=== PATIENT | female | born 1950 | race Caucasian/White ===

== ENCOUNTER → 2018-01-21 08:14 | Outpatient (CLI) | payer MEDICARE, SELFPAY ==
[2018-01-21 09:12] LABS: Add Manual Diff / Slide Review NO; Basophils Percent Auto 0.9 % (0-2); Eosinophils Percent Auto 2.2 % (2-4); Hematocrit 46.4 % (36-46); Hemoglobin 15.7 g/dL (12.0-16.0); Lymphocytes Percent Auto 34.8 % (25-40); Mean Corpuscular HGB Conc 33.9 % (30-36); Mean Corpuscular Hemoglobin 32.4 PG (26-34); Mean Corpuscular Volume 95.4 fL (80-100); Monocytes Percent Auto 6.1 % (3-14); Neutrophils Absolute Auto 4300 /uL (3000-5900); Platelet Count 227 X10^3/uL (150-400); Red Blood Cell Count 4.86 X10^6/uL (4.0-5.2); Red Cell Distribution Width 13.7 % (11.6-14.8); White Blood Cell Count 7.7 X10^3/uL (4.5-11.0)
[2018-01-21 09:40] LABS: Alanine Aminotransferase 26 IU/L (9-52); Albumin 4.3 g/dL (3.5-5.0); Albumin Globulin Ratio 1.5 (1.0-2.8); Alkaline Phosphatase 75 U/L (38-126); Aspartate Aminotransferase 22 IU/L (14-36); BUN Creatinine Ratio 18.8 (6-22); Bilirubin Total 0.6 mg/dL (0.2-1.3); Calcium 9.3 mg/dL (8.4-10.2); Cholesterol 174 mg/dL (140-199); Estimated Glomerular Filt Rate > 60.0 mL/min (>60); Globulin 2.9 g/dL (1.7-4.1); Glucose 99 mg/dL (80-110); HDL Cholesterol 48 mg/dL (40-60); HEMOLYSIS < 15 (0-50); LDL Cholesterol Calculated 94 mg/dL (<100); Potassium 4.4 mmol/L (3.4-5.1); Sodium 141 mmol/L (137-145); Total Protein 7.2 g/dL (6.3-8.2); Triglycerides 160 mg/dL (35-150)
[2018-01-21 10:12] LABS: TSH w/ Reflex to FT4 3.41 uIU/mL (0.47-4.68)
== END ==
PROVIDERS: PCP Family Medicine; Visit Provider Family Medicine
DX: E78.2 Mixed hyperlipidemia (principal); E03.9 Hypothyroidism, unspecified
CPT/HCPCS: 36415; 80053; 80061; 84443; 85025

== ENCOUNTER → 2018-03-11 10:11 | Outpatient (CLI) | payer MEDICARE, SELFPAY | PROVIDERS: PCP Family Medicine; Visit Provider Family Medicine | DX: M85.852 Other specified disorders of bone density and structure, left thigh (principal); Z78.0 Asymptomatic menopausal state; Z90.722 Acquired absence of ovaries, bilateral; Z72.0 Tobacco use; E03.9 Hypothyroidism, unspecified | CPT/HCPCS: 77080 ==

== ENCOUNTER → 2018-12-27 08:38 | Outpatient (CLI) | payer MEDICARE, SELFPAY ==
[2018-12-27 10:10] LABS: Add Manual Diff / Slide Review NO; Basophils Absolute Auto 100 /uL (0-100); Eosinophils Absolute Auto 100 /uL (0-450); Eosinophils Percent Auto 2.1 % (2-4); Hemoglobin 15.8 g/dL (12.0-16.0); Lymphocytes Absolute Auto 2400 /uL (1100-4500); Lymphocytes Percent Auto 34.5 % (25-40); Mean Corpuscular HGB Conc 33.6 % (30-36); Mean Corpuscular Hemoglobin 32.5 PG (26-34); Mean Corpuscular Volume 96.8 fL (80-100); Monocytes Absolute Auto 500 /uL (0-900); Monocytes Percent Auto 7.4 % (3-14); Neutrophils Absolute Auto 3800 /uL (1500-7000); Platelet Count 255 X10^3/uL (150-400); Red Blood Cell Count 4.86 X10^6/uL (4.0-5.2); Red Cell Distribution Width 14.7 % (11.6-14.8); White Blood Cell Count 6.9 X10^3/uL (4.5-11.0)
[2018-12-27 10:25] LABS: Alanine Aminotransferase 17 IU/L (9-52); Albumin 4.7 g/dL (3.5-5.0); Albumin Globulin Ratio 1.6 (1.0-2.8); Alkaline Phosphatase 73 U/L (38-126); Aspartate Aminotransferase 22 IU/L (14-36); BUN Creatinine Ratio 16.3 (6-22); Bilirubin Total 0.6 mg/dL (0.2-1.3); Blood Urea Nitrogen 13 mg/dL (7-17); Calcium 9.2 mg/dL (8.4-10.2); Carbon Dioxide 30 mmol/L (22-32); Chloride 100 mmol/L (98-107); Estimated Glomerular Filt Rate > 60.0 mL/min (>60); Globulin 2.9 g/dL (1.7-4.1); Glucose 94 mg/dL (80-110); HEMOLYSIS 17 (0-50); Potassium 4.3 mmol/L (3.4-5.1); Sodium 138 mmol/L (137-145); Total Protein 7.6 g/dL (6.3-8.2)
[2018-12-27 11:48] LABS: Thyroid Stimulating Hormone 2.38 uIU/mL (0.47-4.68)
== END ==
PROVIDERS: PCP Family Medicine; Visit Provider Family Medicine
DX: E03.9 Hypothyroidism, unspecified (principal); E78.2 Mixed hyperlipidemia
CPT/HCPCS: 36415; 80053; 84443; 85025

== ENCOUNTER → 2019-01-31 09:28 | Outpatient (CLI) | payer MEDICARE, SELFPAY ==
--- NOTE | 2019-01-31 09:31 | DI.RAD.S_ITS ---
PROCEDURE: XR CHEST 2V INDICATIONS: cough TECHNIQUE: 2 views of the chest were acquired. COMPARISON: [facility], CHEST 2 VIEW, 01/10/2011, 12:55. [facility], CHEST 2 VIEW, 01/21/2011, 8:10. FINDINGS: Surgical changes and devices: None. Lungs and pleura: Lungs are clear. No pleural effusions or pneumothorax. Mediastinum: Mediastinal contours are normal. Heart size is normal. Bones and chest wall: No suspicious bony abnormalities. Soft tissues appear unremarkable. IMPRESSION: No acute cardiopulmonary disease. Dictated by: Doe Saeed M.D. on 01/31/2019 at 9:43 Approved by: Doe Saeed M.D. on 01/31/2019 at 9:50
== END ==
PROVIDERS: PCP Family Medicine; Visit Provider Physician Assistant
DX: R05 Cough (principal)
CPT/HCPCS: 71046

== ENCOUNTER → 2019-02-10 11:46 | Outpatient (CLI) | payer MEDICARE, SELFPAY ==
--- NOTE | 2019-02-10 11:48 | DI.MG.S_ITS ---
BILATERAL DIGITAL SCREENING MAMMOGRAM 3D/2D WITH CAD: 02/10/2019 CLINICAL: Routine screening. Comparison is made to exams dated: 02/13/2017 mammogram, 02/12/2015 mammogram - [facility], and 04/14/2012 mammogram - [facility]. The tissue of both breasts is heterogeneously dense. This may lower the sensitivity of mammography. Current study was also evaluated with a Computer Aided Detection (CAD) system. No significant masses, calcifications, or other findings are seen in either breast. There has been no significant interval change. IMPRESSION: NEGATIVE There is no mammographic evidence of malignancy. A 1 year screening mammogram is recommended. This exam was interpreted at Station ID: [id number]. NOTE: For mammograms, a report in lay terms will be sent to the patient. Approximately 15% of breast malignancies will not be visualized mammographically. In the management of a palpable breast mass, a negative mammogram must not discourage biopsy of a clinically suspicious lesion. Electronically Signed By: Dominic christianson/kathe:02/11/2019 06:36:00 letter sent: Normal Exam ACR BI-RADS Category 1: Negative 3341F
== END ==
PROVIDERS: PCP Family Medicine; Visit Provider Family Medicine
DX: Z12.31 Encounter for screening mammogram for malignant neoplasm of breast (principal)
CPT/HCPCS: 77063; 77067

== ENCOUNTER → 2020-09-14 10:20 | Outpatient (CLI) | payer MEDICARE, SELFPAY ==
[2020-09-14 10:44] LABS: Add Manual Diff / Slide Review NO; Basophils Absolute Auto 100 /uL (0-100); Basophils Percent Auto 0.8 % (0-2); Eosinophils Absolute Auto 200 /uL (0-450); Eosinophils Percent Auto 2.8 % (2-4); Hematocrit 45.1 % (36-46); Hemoglobin 15.3 g/dL (12.0-16.0); Lymphocytes Absolute Auto 2200 /uL (1100-4500); Lymphocytes Percent Auto 33.6 % (25-40); Mean Corpuscular HGB Conc 33.9 % (30-36); Mean Corpuscular Hemoglobin 32.8 PG (26-34); Mean Corpuscular Volume 96.7 fL (80-100); Monocytes Absolute Auto 400 /uL (0-900); Monocytes Percent Auto 6.7 % (3-14); Neutrophils Absolute Auto 3700 /uL (1500-7000); Neutrophils Percent Auto 56.1 % (50-75); Platelet Count 232 X10^3/uL (150-400); Red Blood Cell Count 4.67 X10^6/uL (4.0-5.2); Red Cell Distribution Width 13.7 % (11.6-14.8); White Blood Cell Count 6.6 X10^3/uL (4.5-11.0)
[2020-09-14 11:07] LABS: Alanine Aminotransferase 15 IU/L (<35); Albumin 4.3 g/dL (3.5-5.0); Albumin Globulin Ratio 1.5 (1.0-2.8); Alkaline Phosphatase 84 U/L (38-126); Aspartate Aminotransferase 24 IU/L (14-36); BUN Creatinine Ratio 18.4 (6-22); Bilirubin Total 0.5 mg/dL (0.2-1.3); Blood Urea Nitrogen 14 mg/dL (7-17); Calcium 9.2 mg/dL (8.4-10.2); Carbon Dioxide 32 mmol/L (22-32); Chloride 104 mmol/L (98-107); Cholesterol 163 mg/dL (140-199); Estimated Glomerular Filt Rate > 60.0 mL/min (>60); Globulin 2.9 g/dL (1.7-4.1); Glucose 98 mg/dL (80-110); HDL Cholesterol 50 mg/dL (40-60); HEMOLYSIS < 15 (0-50); LDL Cholesterol Calculated 76 mg/dL (<100); Potassium 4.5 mmol/L (3.4-5.1); Sodium 138 mmol/L (137-145); Total Protein 7.2 g/dL (6.3-8.2); Triglycerides 183 mg/dL (35-150)
[2020-09-14 11:34] LABS: Thyroid Stimulating Hormone 1.71 uIU/mL (0.47-4.68)
== END ==
PROVIDERS: PCP Family Medicine; Referring Provider Family Medicine; Visit Provider Family Medicine
DX: E03.9 Hypothyroidism, unspecified (principal); E78.2 Mixed hyperlipidemia; Z72.0 Tobacco use
CPT/HCPCS: 36415; 80053; 80061; 84443; 85025

== ENCOUNTER → 2020-11-09 11:03 | Outpatient (CLI) | payer MEDICARE, SELFPAY ==
--- NOTE | 2020-11-09 | DI.MG.S_ITS ---
BILATERAL DIGITAL SCREENING MAMMOGRAM 3D/2D WITH CAD: 11/09/2020 CLINICAL: Routine screening. Family history of breast cancer. Comparison is made to exams dated: 02/10/2019 mammogram, 02/13/2017 mammogram, and 02/12/2015 mammogram - [facility]. The tissue of both breasts is heterogeneously dense. This may lower the sensitivity of mammography. Current study was also evaluated with a Computer Aided Detection (CAD) system. No significant masses, calcifications, or other findings are seen in either breast. There has been no significant interval change. IMPRESSION: NEGATIVE There is no mammographic evidence of malignancy. A 1 year screening mammogram is recommended. This exam was interpreted at Station ID: [id number]. NOTE: For mammograms, a report in lay terms will be sent to the patient. Approximately 15% of breast malignancies will not be visualized mammographically. In the management of a palpable breast mass, a negative mammogram must not discourage biopsy of a clinically suspicious lesion. Electronically Signed By: Lefty nicolas/kathe:11/09/2020 12:21:43 letter sent: Normal Exam ACR BI-RADS Category 1: Negative 3341F
== END ==
PROVIDERS: PCP Family Medicine; Referring Provider Family Medicine; Visit Provider Family Medicine
DX: Z12.31 Encounter for screening mammogram for malignant neoplasm of breast (principal); Z80.3 Family history of malignant neoplasm of breast
CPT/HCPCS: 77063; 77067

== ENCOUNTER → 2020-11-30 10:23 | Outpatient (CLI) | payer MEDICARE, SELFPAY ==
--- NOTE | 2020-11-30 10:26 | DI.US.S_ITS ---
PROCEDURE: US PELVIC COMPLETE INDICATIONS: left lower quadrant pain, h/o ovarian cyst TECHNIQUE: Real-time scanning was performed of the pelvic organs, with image documentation. Additional endovaginal scanning was necessary due to incomplete visualization of the adnexal and endometrial structures by transabdominal scanning. COMPARISON: [facility], , PELVIC COMPLETE, 02/12/2015, 8:37. FINDINGS: Uterus: Surgically absent. Ovaries: Right ovary surgically absent. A simple left ovarian cyst is again noted measuring 3.3 x 2.3 x 2.5 cm. Other: No pathologic free abdominal or pelvic fluid. IMPRESSION: Stable appearance of 3.3 cm simple left ovarian cyst. Annual sonographic surveillance is recommended. Dictated by: Alverto Mendez [facility] Interpreted: Suzan Almaraz MD on 11/30/2020 at 11:17 Approved by: Suzan Almaraz MD, PhD on 11/30/2020 at 14:56
== END ==
PROVIDERS: PCP Family Medicine; Referring Provider Family Medicine; Visit Provider Family Medicine
DX: N83.292 Other ovarian cyst, left side (principal)
CPT/HCPCS: 76830; 76856

== ENCOUNTER → 2021-03-13 08:10 | Outpatient (CLI) | payer MEDICARE, SELFPAY ==
--- NOTE | 2021-03-13 08:12 | DI.US.S_ITS ---
PROCEDURE: US PELVIC COMPLETE INDICATIONS: F/U LEFT OVARIAN CYST TECHNIQUE: Real-time scanning was performed of the pelvic organs, with image documentation. Additional endovaginal scanning was necessary due to incomplete visualization of the adnexal and endometrial structures by transabdominal scanning. COMPARISON: [facility], , US PELVIC COMPLETE, 11/30/2020, 11:02. FINDINGS: Uterus: Uterus has been removed. Ovaries: Right ovary has been removed. Left ovary measures 3.4 x 2.4 x 2.9 cm. Focus of decreased echogenicity is present measuring 3.1 x 2.2 x 2 x 3 cm, compared to 3.3 x 2 x 3 x 2.5 cm. Other: No pathologic free abdominal or pelvic fluid. IMPRESSION: Relatively stable appearance of prominent left ovarian cyst as above. Dictated by: Remedios Samuel M.D. on 03/13/2021 at 10:43 Approved by: Remedios Samuel M.D. on 03/13/2021 at 10:44
== END ==
PROVIDERS: PCP Family Medicine; Referring Provider Obstetrics & Gynecology; Visit Provider Obstetrics & Gynecology
DX: N83.202 Unspecified ovarian cyst, left side (principal); Z90.710 Acquired absence of both cervix and uterus
CPT/HCPCS: 76830; 76856

== ENCOUNTER → 2021-05-23 15:49 | Outpatient (ROUT) | payer MEDICARE, SELFPAY ==
[2021-05-23 16:23] LABS: COVID19 -Nasal RAPID Negative (Negative)
== END ==
PROVIDERS: PCP Family Medicine; Visit Provider Obstetrics & Gynecology
DX: Z01.812 Encounter for preprocedural laboratory examination (principal); Z20.822 Contact with and (suspected) exposure to COVID-19
CPT/HCPCS: 87635

== ENCOUNTER 2021-05-24 07:57 | Day surgery (SDC) | payer MEDICARE, SELFPAY ==
[2021-05-22 08:09] VITALS: BMI 23.7
[2021-05-24] VITALS (8 sets, daily range): BP systolic 112–138; BP diastolic 61–81; PULSE 65–80; RESP 12–18; TEMP 36.4–37; O2SAT 92–99; BMI 23.6
--- NOTE | 2021-05-24 | PATH_ITS ---
[facility] Accession Number: [id number] . 01 Material submitted: . ovary - BILATERAL OVARIES . 02 Diagnosis: Bilateral Ovaries, Bilateral Oophorectomy: Smaller ovary (weight 2 grams) with multiple benign cortical follicle and serous cysts (2-3 mm) and adherent fallopian tube; negative for atypia or malignancy. Larger ovary (weight 11 grams) with a benign serous cystadenoma (3.0 cm) and multiple, smaller benign serous cysts (1-3 mm) with patchy capsular adhesions, non-specific. [facility] 05/28/2021 1429 Local . 02 Electronically signed: . Donna Rios MD, Pathologist NPI- [id number] . 01 Gross description: . Received in formalin, labeled bilateral ovaries, and consists of two ovaries weighing 2 gm, 2.0 x 1.5 x 1.0 cm and 11g, 4.0 x 3.0 x 2.6 cm. The external surfaces are maurice and focally ragged. The smaller ovary has a portion of attached fimbriae. Sectioning reveals multiple maurice-white, smooth-walled, serous-filled cysts ranging from 0.2 cm to 3.0 cm. No papillary excrescences are identified. area representative sections are submitted. . A1-A2: Smaller ovary with attached fimbriae, bisected and entirely submitted. A3-A5: Geriatric Social Worker larger ovary. ([id number]) /FRR 05/25/2021 1618 Local . 02 Pathologist provided ICD-10: N83.209, R10.2, D27.9 . 02 CPT . 336639 Performed at: 01 [facility] [address] [place] [address] [address], [place], [place] [id number] MD Lefty Lind MD Phone: [phone] Performed at: 02 [facility] [address] [place] [id number] MD Justina Luz MD Phone: [phone]
--- NOTE | 2021-05-24 08:46 | SUR.PREOP ---
Lab in to draw blood.
[2021-05-24 08:52] LABS: Add Manual Diff / Slide Review NO; Basophils Absolute Auto 100 /uL (0-100); Basophils Percent Auto 0.8 % (0-2); Eosinophils Absolute Auto 100 /uL (0-450); Eosinophils Percent Auto 1.7 % (2-4); Hematocrit 44.1 % (36-46); Hemoglobin 14.7 g/dL (12.0-16.0); Lymphocytes Absolute Auto 1900 /uL (1100-4500); Lymphocytes Percent Auto 23.3 % (25-40); Mean Corpuscular HGB Conc 33.3 % (30-36); Mean Corpuscular Hemoglobin 32.3 PG (26-34); Mean Corpuscular Volume 96.8 fL (80-100); Monocytes Absolute Auto 400 /uL (0-900); Monocytes Percent Auto 5.4 % (3-14); Neutrophils Absolute Auto 5500 /uL (1500-7000); Neutrophils Percent Auto 68.8 % (50-75); Platelet Count 230 X10^3/uL (150-400); Red Blood Cell Count 4.55 X10^6/uL (4.0-5.2); Red Cell Distribution Width 13.7 % (11.6-14.8)
[2021-05-24] MEDS: LACTATED RINGERS 1,000 ML 100 ML IV ×2 (09:00→10:57)
--- NOTE | 2021-05-24 09:28 | P.HPOB_ITS ---
History of Present Illness History of Present Illness Reason for admission: other (Left ovarian cyst) Narrative: This patient is a 71-year-old para 2 presenting for discussion of left lower quadrant pain in the setting of both GI symptoms and a 3 cm left ovarian cyst. The patient reports that for the last several months, she has had persistent ache in her left lower quadrant. During the same time, she has alternated between constipation and diarrhea, with unpredictable and sometimes runny bowel movements. She does report some leakage of stool, though no blood in her stool. She is uncertain if her cramping ache correlates with her GI upset, but reports that the pain does not radiate. She denies change in bladder habits, abnormal vaginal discharge or bleeding, bloating, nausea, vomiting, or early satiety. The patient has a history of 2 vaginal deliveries and 1 miscarriage, exploratory laparotomy at age 20 with? Right oophorectomy for an ovarian cyst, and a JACK/BS and partial left oophorectomy at age 42 for abnormal uterine bleeding. She denies any history of pelvic infection or STD, or abnormal Pap smear. The patient reports a history of thyroid derangement though she is uncertain of the kind, and is on Synthroid for this. She denies any other contributory medical or surgical history. She denies any personal or family history of malignancy. After review of all options the patient has opted to proceed with laparoscopic oophorectomy and she presents today for her scheduled procedure. [facility] Medical History Chicken pox (1961) Foot pain (1974) H/O vaginal delivery Hypothyroidism (acquired) Psoriasis (1963) Surgical History Anesthesia Status post bilateral foot surgery (1999) Status post hysterectomy (1989) Family History Mother Stroke Grandmother Breast cancer Father Bladder cancer Kidney disease Social History marital status: number of children: 2 household members: spouse lives independently: Yes caregiver/support person: No housing: house pets and animals: No education level: college occupational status: other (retired) current occupational exposures/hazards: No Previous occupational history: [employer] Smoking Status: Current every day smoker alcohol intake: current substance use type: does not use Meds Home Medications and Allergies Home Medications Medication Instructions Recorded Confirmed Type levothyroxine 50 mcg tablet 50 mcg PO DAILY #90 tab 11/09/20 05/24/21 Rx lovastatin 20 mg tablet 10 mg PO HS 05/24/21 05/24/21 History Allergies Allergy/AdvReac Type Severity Reaction Status Date / Time No Known Drug Allergies Allergy Verified 05/24/21 08:24 Review of Systems Review of Systems Narrative: Problem-specific ROS positives are included in HPI Exam Vital Signs (past 8 hours): - 05/24/21 08:27 Temperature 97.8 F Pulse Rate 67 Respiratory Rate 18 Blood Pressure 135/81 Pulse Oximetry 99 Oxygen Delivery Method Room Air Const General: cooperative Nutritional Appearance: average body habitus Orientation: alert and oriented x3 HENMT Head: normocephalic and atraumatic Ears: hearing grossly normal bilaterally Nose: external nose normal Face and sinus: normal facial exam Mouth: oral mucosae normal Teeth and gingiva: dentition normal Throat: posterior oropharynx normal Eyes General: appearance normal, both eyes and all related structures Conjunctivae: conjunctivae normal Sclera: sclerae normal EOM: EOM intact bilaterally Neck Neck: full ROM and trachea midline Thyroid: thyroid normal Resp Effort & Inspection: normal respiratory effort and able to speak in complete sentences Auscultation: clear to auscultation bilaterally Cardio Rate: regular rate Rhythm: regular rhythm Heart Sounds: S1 normal, S2 normal and no murmurs GI Inspection: normal to inspection Palpation: soft and no hepatosplenomegaly General: other (Pelvic exam deferred) Psych Appearance: grossly normal Mental Status: mental status grossly normal Speech and Movement: speech and movement normal Mood: congruent mood Affect: normal affect Attitude: cooperative Thought Process: normal Thought Content: normal Judgment: judgment good Objective Labs Result Diagrams: 05/24/21 08:48 Labs: Laboratory Results - last 24 hr 05/24/21 08:48 WBC 8.0 RBC 4.55 Hgb 14.7 Hct 44.1 MCV 96.8 MCH 32.3 MCHC 33.3 RDW 13.7 Plt Count 230 Neut % (Auto) 68.8 Lymph % (Auto) 23.3 L [place] % (Auto) 5.4 Eos % (Auto) 1.7 L Baso % (Auto) 0.8 Neut # (Auto) 5500 Lymph # (Auto) 1900 [place] # (Auto) 400 Eos # (Auto) 100 Baso # (Auto) 100 Assessment & Plan Assessment and plan (1) Left ovarian cyst: Status: Acute Plan: Patient counseled regarding alternatives, risks, benefits, and potential complications associated with laparoscopic oophorectomy. With full understanding of the above, a written consent was executed, signed and witnessed this date. COVID-19 COVID-19 status: Negative Result date/Date tested (Pos, Neg/Pending): 05/23/21 Time Spent With Patient Time with patient: less than 30 minutes Critical Care time: I spent a total of [] minutes of critical care time on this patient's care today; this time is exclusive of procedural time.
--- NOTE | 2021-05-24 09:47 | PM.PREOP ---
Pre-operative Note COVID-19 COVID-19 status: Negative Result date/Date tested (Pos, Neg/Pending): 05/24/21 Interval Note History & Physical reviewed/Exam performed by Physician: Yes Changes to H&P: No
--- NOTE | 2021-05-24 10:10 | SUR.OPER ---
Addendum entered by Kaykay Chaves R.N. 05/24/21 10:13: Warm blankets X2 placed on patient intraop prior to sterile draping. Original Note: Lithotomy on padded OR bed, head on pillow, arms padded with gel pad and tucked at sides. Legs secured in padded yellow fins stirrups. Pre-op RN stated patient voided in Pre-op area Bathroom around 0930.
[2021-05-24] MEDS: BUPIVACAINE 0.5% (PF) VIAL 30 ML INJ (10:32)
[2021-05-24] MEDS: EPINEPHrine 1 MG/ML 0.15 MG SUBCUT (10:35)
--- NOTE | 2021-05-24 11:47 | P.OP_ITS ---
Operative Date/Time/Diagnoses Date of procedure: 05/24/21 Time of procedure: 10:20 Pre-op diagnosis: Left ovarian cyst Post-op diagnosis: same Procedure & Clinicians Procedure: Procedures Operation Date: 05/24/21 09:15 Actual Procedure Side Surgeon p Laparoscopic Oophorectomy Bilateral Dominik Yates MD Surgeon: Dominik Yates Anesthesia Type: General Operative Notes Findings: The pelvis demonstrate changes consistent with previous hysterectomy. Both ovaries remain in-situ with the left ovary enlarged to approximately 3 cm with a cystic mass therein as noted on ultrasound. The left ovary is densely adherent to the pelvic sidewall and epiploica of the sigmoid colon. The right ovary is atrophic. The remainder of the abdominal cavity as visualized by laparoscopy is unremarkable. Closure Type: primary Specimen(s): left tube & ovary and right tube & ovary Estimated blood loss (mL): 25 Blood products transfused: none Procedure in detail: With the patient under satisfactory general endotracheal anesthesia in the modified dorsal lithotomy position, the vagina, perineum, and abdomen were prepped and draped in the usual fashion for laparoscopy. A pre- surgical safety time-out was then taken her [facility] Main OR protocol. The umbilicus was then infiltrated with 0.25% Marcaine and a 2-1/2 cm vertical umbilical incision was made. The dissection was carried down to the fascia which was incised transversely and the peritoneal cavity entered under direct vision without difficulty. A Pascual cannula was then placed through the incision into the abdominal cavity and held in place with 0 Vicryl stay sutures. A 2nd and 3rd 5 mm port were placed in the left and right mid quadrants after infiltration of the subcutaneous tissues and skin with 0.25% Marcaine. Using a 3 puncture technique the pelvis and abdomen were thoroughly visualized with the findings as noted above. The distal fallopian to was identified in grasped on the right side and using the PK device, the infundibulopelvic ligament was identified, coagulated, and divided. The entire ovary and tube were removed and submitted as an aggregate specimen with the left ovary. Attention was then turned to the left adnexa which was densely adherent to the sidewall. Using the PK device and a combination of blunt and sharp dissection, the ovary was from the sidewall, the infundibulopelvic ligament identified, and the ligament was coagulated and divided with PK device. Once the ovary was comp letely free, an Endo-Catch device was inserted through the umbilical port and the specimens retrieved through the umbilical incision. Both ovaries were submitted as it aggregate specimen. The umbilicus was then closed with 0 Vicryl interrupted on the fascia and all the skin incisions were closed with 4-0 Monocryl using inverted interrupted stitches. The patient was awakened and transferred to the PACU for a period of observation and recovery having tolerated the procedure well. Complications: none Post-operative Condition: stable Disposition: PACU Plan for aftercare: Routine postoperative care and discharge following recovery in PACU
--- NOTE | 2021-05-24 12:22 | SUR.PHASEII ---
6031 Patient stated that she needs to void. Ambulated to the bathroom, dressed without assistance. Returned to bed to doze while waiting for spouse; unable to reach him by phone.
== END 2021-05-24 12:37 | disposition home or self-care (01) ==
PROVIDERS: PCP Family Medicine; Referring Provider Obstetrics & Gynecology; Visit Provider Obstetrics & Gynecology
PROC: 0UT24ZZ Resection of Bilateral Ovaries, Percutaneous Endoscopic Approach (ICD-10-PCS; CPT 58661; principal; 2021-05-24 09:15)
DX: N83.202 Unspecified ovarian cyst, left side (principal); N83.201 Unspecified ovarian cyst, right side; E03.9 Hypothyroidism, unspecified; E78.5 Hyperlipidemia, unspecified; F17.200 Nicotine dependence, unspecified, uncomplicated; Z90.710 Acquired absence of both cervix and uterus; N83.00 Follicular cyst of ovary, unspecified side; N73.6 Female pelvic peritoneal adhesions (postinfective)
CPT/HCPCS: 58661; 82962; 85025; J0171; J1100; J1885; J2250; J2405; J2704; J3010

== ENCOUNTER → 2022-06-16 10:39 | Outpatient (CLI) | payer MEDICARE, SELFPAY ==
--- NOTE | 2022-06-16 10:40 | DI.RAD.S_ITS ---
PROCEDURE: XR DEXA AXIAL SKELETON INDICATIONS: postmenopausal COMPARISON: , [facility], XR DEXA AXIAL SKELETON, 03/11/2018, 11:05. FINDINGS: This blank DEXA report has been sent in error by the PACS system. The correct and complete report will be forthcoming in 1-2 days. Thank you for your patience and understanding. Dictated by: Santiago Dubon M.D. on 06/16/2022 at 15:54 Approved by: Santiago Dubon M.D. on 06/16/2022 at 15:54
== END ==
PROVIDERS: PCP Family Medicine; Referring Provider Family Medicine; Visit Provider Family Medicine
DX: Z78.0 Asymptomatic menopausal state (principal); Z13.820 Encounter for screening for osteoporosis; M85.852 Other specified disorders of bone density and structure, left thigh; Z90.710 Acquired absence of both cervix and uterus
CPT/HCPCS: 77080

== ENCOUNTER → 2023-06-13 11:19 | Outpatient (CLI) | payer MEDICARE, SELFPAY ==
--- NOTE | 2023-06-13 11:21 | DI.MG.S_ITS ---
BILATERAL DIGITAL SCREENING MAMMOGRAM 3D/2D WITH CAD: 06/13/2023 CLINICAL: Family history of breast cancer. Comparison is made to exams dated: 11/09/2020 mammogram, 02/10/2019 mammogram, and 02/13/2017 mammogram - [facility]. Both breasts are heterogeneously dense, which may obscure small masses (category c / 51-75% glandular tissue). Current study was also evaluated with a Computer Aided Detection (CAD) system. No significant masses, calcifications, or other findings are seen in either breast. There has been no significant interval change. IMPRESSION: NEGATIVE There is no mammographic evidence of malignancy. A 1 year screening mammogram is recommended. Based on the Tyrer Cuzick model (a risk assessment model) the patient's lifetime risk is 4.8% and her 10 year risk is 3.3%. According to the ACR, ACS, and NCCN guidelines, an annual breast MRI exam along with mammogram is recommended if the patient's lifetime risk is 20% or greater. This exam was interpreted at Station ID: [id number]. NOTE: For mammograms, a report in lay terms will be sent to the patient. Approximately 15% of breast malignancies will not be visualized mammographically. In the management of a palpable breast mass, a negative mammogram must not discourage biopsy of a clinically suspicious lesion. Electronically Signed By: Dominic christianson/kathe:06/13/2023 12:51:20 letter sent: Normal Exam ACR BI-RADS Category 1: Negative 3341F
== END ==
PROVIDERS: PCP Student in an Organized Health Care Education/Training Program; Referring Provider Student in an Organized Health Care Education/Training Program; Visit Provider Student in an Organized Health Care Education/Training Program
DX: Z12.31 Encounter for screening mammogram for malignant neoplasm of breast (principal); Z80.3 Family history of malignant neoplasm of breast
CPT/HCPCS: 77063; 77067